=== PATIENT | male | born 1955 | race Caucasian/White ===

== ENCOUNTER 2022-04-04 15:49 | Emergency (ER) | payer OTHER, MEDICARE ==
[~2022-04-04] VITALS: Ht 172.7 cm; Wt 70.0 kg
[2022-04-04] VITALS (24 sets, daily range): BP systolic 138–199; BP diastolic 73–96
[2022-04-04 16:59] LABS: HEMATOCRIT 44.1 % (39.0-50.0); HEMOGLOBIN 15.6 g/dl (14.0-18.0); IMMATURE GRANULOCYTES 0.2 % (0.0-5.0); MEAN CELL VOLUME 93.6 fL CALC (80.0-100.0); MEAN CORPUSCULAR HGB 33.1 pG CALC (26.0-32.0); MEAN CORPUSCULAR HGB CONC 35.4 g/dL CAL (32.0-36.0); NEUT# 11.67 thou/uL (1.82-7.42); RED BLOOD COUNT 4.71 mill/uL (4.70-6.10); RED CELL DISTRI WIDTH 11.6 % (11.5-15.5)
[2022-04-04 17:17] LABS: ALBUMIN 4.9 g/dL (3.2-5.0); ALKALINE PHOSPHATASE 85 u/l (38-126); ANION GAP 11 (6-22 (CALC)); BILIRUBIN, TOTAL 0.6 mg/dL (0.0-1.4); BUN 16 mg/dL (8-23); BUN/CREATININE RATIO 22 (12-20 (CALC)); CARBON DIOXIDE 28 mmol/l (22-30); CHLORIDE 103 mmol/l (95-108); CREATININE 0.8 mg/dL (0.7-1.3); GFR FOR AFR.AMER. > 60 ML/MIN (>=60 (CALC)); GFR OTHER RACES > 60 ML/MIN (>=60 (CALC)); LIPASE 64 u/l (23-300); POTASSIUM 4.3 mmol/l (3.5-5.1); SGOT/AST 36 u/l (19-48); SODIUM 137 mmol/l (137-146); TOTAL PROTEIN 7.8 g/dL (6.3-8.2)
[2022-04-04 18:18] LABS: URINE BILIRUBIN - DIPSTICK NEGATIVE (NEGATIVE); URINE BLOOD DIPSTICK NEGATIVE (NEGATIVE); URINE COLOR YELLOW; URINE GLUCOSE - DIPSTICK NEGATIVE (NEGATIVE); URINE KETONE 15 mg/dL (NEGATIVE); URINE LEUK ESTERASE NEGATIVE (NEGATIVE); URINE PROTEIN - DIPSTICK NEGATIVE (NEG-TRACE); URINE SPECIFIC GRAVITY 1.025; URINE UROBILINOGEN - DIPSTICK 0.2 E.U./dL (0.2)
[2022-04-04 18:20] LABS: URINE NITRITE - DIPSTICK NEGATIVE (Negative)
== END 2022-04-04 21:45 | disposition short-term general hospital (02) | DRG 446 ==
LOC: ED 15:49 → ED-I 19:14 → ED 21:45
PROVIDERS: Family Medicine
DX: K81.0 Acute cholecystitis (principal); K83.8 Other specified diseases of biliary tract; F17.200 Nicotine dependence, unspecified, uncomplicated
CPT/HCPCS: Q9967; S0164

== ENCOUNTER 2024-07-24 21:41 | Emergency (ER) | payer MEDICARE ==
[~2024-07-24] VITALS: Ht 175.3 cm; Wt 70.3 kg
[2024-07-24] MEDS ORDERED: ONDANSETRON HCl 4 MG/2 ML SDV IV ONE (22:35)
[2024-07-24] MEDS ORDERED: MORPHINE SULFATE 4 MG/ML VIAL IV ONE (22:35)
[2024-07-24 23:07] LABS: BASO% 0.2 % (0-3); EOS% 0.3 % (0-8); HEMATOCRIT 48.1 % (39.0-50.0); HEMOGLOBIN 16.5 g/dl (14.0-18.0); IMMATURE GRANULOCYTES 0.2 % (0.0-5.0); LYMPH% 4.4 % (15-41); MEAN CELL VOLUME 94.9 fL CALC (80.0-100.0); MEAN CORPUSCULAR HGB 32.5 pG CALC (26.0-32.0); MEAN CORPUSCULAR HGB CONC 34.3 g/dL CAL (32.0-36.0); MONO% 5.8 % (2-13); NEUT# 13.03 thou/uL (1.82-7.42); NEUT% 89.1 % (42-76); RED BLOOD COUNT 5.07 mill/uL (4.70-6.10); RED CELL DISTRI WIDTH 11.4 % (11.5-15.5)
[2024-07-24 23:16] LABS: ALBUMIN 4.3 g/dL (3.2-5.0); BILIRUBIN, TOTAL 0.7 mg/dL (0.2-1.3); POTASSIUM 4.2 mmol/l (3.5-5.1); TOTAL PROTEIN 6.8 g/dL (6.3-8.2)
[2024-07-24 23:41] VITALS: BP 163/81
[2024-07-25 00:04] LABS: URINE BLOOD DIPSTICK Large (NEGATIVE); URINE COLOR Orange; URINE GLUCOSE - DIPSTICK 100 mg/dL (NEGATIVE); URINE KETONE 15 mg/dL (NEGATIVE); URINE LEUK ESTERASE Trace (NEGATIVE); URINE NITRITE - DIPSTICK Positive (Negative); URINE PROTEIN - DIPSTICK >=300 mg/dL (NEG-TRACE); URINE SPECIFIC GRAVITY 1.015
[2024-07-25 00:05] LABS: URINE RBC TNTC RBC/hpf (0-5)
[2024-07-25] MEDS ORDERED: SODIUM CHLORIDE 1,000 ML BTL IR ONE (00:13)
[2024-07-25] MEDS ORDERED: CEFDINIR300 MG PO (00:27)
[2024-07-25 00:30] VITALS: BP 215/112
[2024-07-25 00:32] VITALS: BP 189/89
[2024-07-25 01:02] VITALS: BP 189/89
== END 2024-07-25 01:02 | disposition home or self-care (01) ==
LOC: ED 21:41
PROVIDERS: Internal Medicine
PROC: 0T2BX0Z Change Drainage Device in Bladder, External Approach (ICD-10-PCS; principal; 2024-07-24)
DX: T83.031A Leakage of indwelling urethral catheter, initial encounter (principal); Y84.6 Urinary catheterization as the cause of abnormal reaction of the patient, or of later complication, without mention of misadventure at the time of the procedure; Z72.0 Tobacco use; Z98.890 Other specified postprocedural states
CPT/HCPCS: J0696; J2405